=== PATIENT | male | born 1945 | race Caucasian/White ===

== ENCOUNTER 2022-09-05 06:00 | Day surgery (SDC) | payer MEDICARE, OTHER ==
[~2022-09-05] VITALS: Ht 170.2 cm; Wt 97.7 kg
[~2022-09-05 06:00] MED LIST: ALLOPURINOL100 MG PO; AZOR 5-40 MG T1 EACH PO; BYSTOLIC5 MG PO; FLOMAX0.4 MG PO; JARDIANCE25 MG PO; LIPITOR80 MG GT; VICTOZA 2-0.6 MG/0.1 SUB-Q
[2022-09-05 06:35] VITALS: BP 117/67
[2022-09-05] MEDS ORDERED: HYDROCODON-ACE1 EAC8 PO (06:38)
--- NOTE | 2022-09-05 10:36 | NUR ---
09/05/22 Diane6 Brenda Saravia 1030-PT ARRIVES TO PACU WITH LETHA DICKSON AND CUSTOMER SERVICE VOICE. PT AWAKE AND RESPONSIVE. DENIES PAIN/NAUSEA. PT BACK TO SLEEP. PT HAS SLEEP APNEA AND REQUIRES O2 SUPPORT AT THIS TIME. BLOOD SUGAR 124
[2022-09-05 11:03] VITALS: BP 103/53
--- NOTE | 2022-09-05 11:09 | NUR ---
CONRADO 1055 PATIENT BACK TO DAY SURGERY ROOM 7. REPORT RECIEVED FROM SHWETHA DELUNA. PATIENT IS DROWSY BUT ORIENTED. BREATHING EQUAL AND UNLABORED. OXYGEN SATURATIONS ABOVE 90% ON 2 LITERS VIA NASAL CANNULA. OXYGEN TITRATED DOWN TO ROOM AIR. OXYGEN MAINTAINING ABOVE 90% ON ROOM AIR. PATIENT STATES PAIN IS TOLERABLE AT 3/10. DENIES BEING NAUSEATED. WATER AND CRACKERS GIVEN. IVF FLUIDS RUNNING. NO DRAINAGE AT SURGICAL SITE. SCD'S ON. CALL LIGHT WITHIN REACH NO FUTHER NEEDS. NO QUESTIONS AT THIS TIME. AT BEDSIDE.
--- NOTE | 2022-09-05 11:27 | NUR ---
LE 1120 PATIENT GIVEN PRN PAIN MEDICINE. PATIENT ABLE TO DRINK AND EAT CRACKERS. DENIES PAIN AT THIS TIME. DENIES BEING NAUSEATED. CALL LIGHT WITHIN REACH NO FUTHER NEEDS. NO QUESTIONS AT THIS TIME.
[2022-09-05 11:55] VITALS: BP 116/73
--- NOTE | 2022-09-05 12:06 | NUR ---
LE 1130 PATIENT UP TO THE RESTROOM. VOIDED. PATIENT ABLE TO AMBULATE BACK TO BED. TOLERATED IT WELL. PATIENT STATES PAIN IS BETTER AFTER MEDICINE. LE 1155 PATIENT ALERT AND ORIENTED. BREATHING EQUAL AND UNLABORED. OXYGEN SATURATIONS ABOVE 90% ON ROOM AIR. PATIENT PAIN 3/10 PAIN AND DENIES BEING NAUSEATED. NO DRAINAGE AT THIS TIME. PATIENT HAS MET DISCHARGE CRITIERA. PATIENT GIVEN DISCHARGE INSTRUCTIONS AND UNDERTSTOOD. NO QUESTIONS AT THIS TIME. IV D/C'D WNL. PATIENT WHEELED OUT OF FACILITY NO FUTHER NEEDS. IN PRIVATE AUTO.
--- NOTE | 2022-09-05 18:31 | OR ---
[facility] [address] [facility] [place], [place] [address] Signed DATE OF OPERATION: 09/05/2022 SURGEON: Laura Gongora MD PREOPERATIVE DIAGNOSES: Prostate cancer with placement of brachytherapy seeds, now with need for postprocedure diagnostic cystourethroscopy. POSTOPERATIVE DIAGNOSES: Prostate cancer with placement of brachytherapy seeds, now with need for postprocedure diagnostic cystourethroscopy, breaking brachytherapy seeds, present within the membranous urethra. NAMES OF PROCEDURES: 1. Diagnostic cystourethroscopy. 2. Extraction of two brachytherapy seeds from the membranous urethra. ANESTHESIA: General. ESTIMATED BLOOD LOSS: None. COMPLICATIONS: None. SPECIMENS: Both two brachytherapy seeds and spacer were removed in toto without difficulty. DRAINS: None. INDICATIONS FOR PROCEDURE: Mr. Arreaga is a 77-year-old gentleman with prostate cancer who has just completed fluoroscopically guided placement of brachytherapy seeds by Dr. Uriel Anderson. Dr. Anderson has requested that I perform a diagnostic cystourethroscopy after the procedure to ensure no seeds have been misplaced within the urethra or bladder. OPERATIVE FINDINGS: 1. Diagnostic cystoscopy reveals no evidence of any suspicious masses, lesions, or Electronically Signed By: LAURA GONGORA MD 09/05/22 1831 PATIENT NAME: TROY ARREAGA OPERATIVE REPORT DATE OF : 49 REPORT #: [id number] PHYSICIAN: LAURA GONGORA MD PCP: NO PRIMARY CARE PHYSICIAN REPORT IS CONFIDENTIAL AND NOT TO BE RELEASED WITHOUT AUTHORIZATION [facility] [address] [place], [place] [address] Signed stones. There are no brachytherapy seeds present within the bladder. Bilateral ureteral orifices are in their normal anatomic location. 2. Ureteroscopy reveals the presence of a string of brachytherapy seeds within the membranous portion of the urethra. These two seeds were attached together with the spacer in between. Graspers were used to extract these seeds under direct visualization via a flexible cystoscope. The two seeds and spacer were removed in toto without difficulty. DESCRIPTION OF PROCEDURE: After informed consent was obtained, the patient was already in dorsal lithotomy position under general anesthesia. The patient's genitalia were prepped and draped in a standard sterile fashion. A flexible cystoscope was inserted through the patient's urethra and down and toward the prostatic urethra. At around the membranous urethra I did see an obvious seed protruding from this area into the lumen of the urethra. I used an alligator grasper to remove this seed and the seed that was attached to it via spacer from the patient's urethra. This was performed without difficulty. I then reinserted the cystoscope and re-evaluated the entire length of the urethra and then went into the bladder and I performed a thorough cystoscopy in that area. Please see above findings. I then withdrew the cystoscope completely and the procedure was terminated. The patient was straight cathed using a 16-Wolof catheter to empty the majority of his bladder as it was somewhat distended during the procedure. The catheter did not remain within the bladder at the end of the procedure. Overall, the patient tolerated the procedure well without any complication. He will now be taken to the postanesthesia care unit in stable condition. MD RENATE Nolen/MODL /[id number] Copies: ~ Electronically Signed By: LAURA GONGORA MD 09/05/22 1831 PATIENT NAME: TROY ARREAGA OPERATIVE REPORT DATE OF : 49 REPORT #: [id number] PHYSICIAN: LAURA GONGORA MD PCP: NO PRIMARY CARE PHYSICIAN REPORT IS CONFIDENTIAL AND NOT TO BE RELEASED WITHOUT AUTHORIZATION
--- NOTE | 2022-09-05 22:52 | EKG ---
[facility] [address] [facility] [place] [address] Signed Normal sinus rhythm Low voltage QRS Borderline ECG No previous ECGs available Confirmed by Jose A Moreira MD () on 09/05/2022 10:52:14 PM Electronically Signed By: JOSE A MOREIRA MD 09/05/22 2252 PATIENT NAME: TROY ARREAGA Electrocardiogram DATE OF : 49 PHYSICIAN: JOSE A MOREIRA MD REPORT #: [id number] REPORT IS CONFIDENTIAL AND NOT TO BE RELEASED WITHOUT AUTHORIZATION
--- NOTE | 2022-09-10 14:35 | OR ---
[facility] [address] [facility] [place], [place] [address] Signed DATE OF OPERATION: 09/05/2022 SURGEON: Josefina Anderson MD, PH.D. PREOPERATIVE DIAGNOSIS: Prostate adenocarcinoma. POSTOPERATIVE DIAGNOSIS: Prostate adenocarcinoma. PROCEDURE: Rectal ultrasound-guided implantation of radioactive iodine-125 seeds into the prostate gland. ANESTHESIA: General. ESTIMATED BLOOD LOSS: Minimal. COMPLICATIONS: None. ANTIBIOTICS: IV levofloxacin. INDICATIONS FOR PROCEDURE: Troy Arreaga is a 77-year-old gentleman who is diagnosed with a stage T2a, Laila grade 4 + 3 =7, PSA 4.55, prostate adenocarcinoma. His prostate cancer was classified as unfavorable intermediate risk. He was treated with neoadjuvant and concurrent hormone therapy along with radiation therapy to a dose of 45 Gy in 25 fractions to the pelvic lymph nodes, seminal vesicles, and prostate gland under the direction of Dr. Presley ending on July 15, 2022. He also had SpaceOAR, Hydrogel placed between the prostate gland and rectum prior to the start of his radiation. He has elected to undergo a radioactive seed implant boost. Prescription dose: 110 Gy with iodine-125 seeds with 0.276 millicurie activity. OPERATIVE DESCRIPTION: Following induction of adequate anesthesia, the patient was placed in the treatment Electronically Signed By: JOSEFINA ANDERSON 09/10/22 1435 PATIENT NAME: TROY ARREAGA OPERATIVE REPORT DATE OF : 49 REPORT #: [id number] PHYSICIAN: JOSEFINA ANDERSON PCP: NO PRIMARY CARE PHYSICIAN REPORT IS CONFIDENTIAL AND NOT TO BE RELEASED WITHOUT AUTHORIZATION [facility] [address] [place], [place] [address] Signed planning dorsal lithotomy position. The perineum was prepped with Betadine and a Madrigal catheter was inserted into the bladder without difficulty. The scrotum was elevated onto the abdominal wall and secured with Ioban. The fixation support system was fixed to the table and the ultrasound probe was affixed to the system. Transrectal ultrasound examination of the prostate gland was performed with a 6 megahertz probe, taking sagittal and transverse views to localize prostate gland, and to make sure the images conformed to the preoperative plan. Once the proper angulation and position were obtained, the apparatus was fixed in position. The template was then attached to the apparatus. Then, individual preloaded needles were inserted, one needle at a time through the template and perineal skin, and into the prostate gland according to the preoperative plan. Each individual needle was identified on the ultrasound images and inserted into position as close as possible to the pretreatment plan on axial images. Two anchor needles were placed initially to help stabilize the prostate gland. Then, starting anteriorly, one row of needles was placed first. Unfortunately, the patient began moving, and deeper anesthesia had to be induced. Due to the patient's movement, the needles were removed, the ultrasound probe was repositioned, and the procedure was restarted starting with the anchor needles. Ultimately, each row of needles was placed into the proper position within the prostate gland. The proper depth of each needle was then confirmed on sagittal images and also by measuring the distance from the template to the hub of each needle with a ruler. Then, needles were slowly withdrawn with the stylet in place, so that stranded seeds were placed in the prostate gland in the proper position. Then, subsequent rows of needles were placed, one at a time with placement of all the seeds from each row before proceeding to the next row. AP pelvic x-rays were taken periodically to confirm the proper position of the radioactive seeds. The treatment plan called for 74 seeds to be implanted, and a total of 74 seeds were placed into the prostate gland utilizing 24 needles. There was no bony interference encounter during the procedure. Following the insertion of the seeds, an AP pelvic x-ray was taken, which revealed seeds to be in the proper position within the pelvis. The patient then had a cystoscopy performed by Dr. Gold (see separate operative report). Unfortunately, a single seed was seen in the urethra, and this was extracted revealing a strand containing a total of two seeds. On further investigation, this strand likely corresponds with the seeds from needle 20. Therefore, a total of 72 seeds were left in the patient for a total activity of 19.87 millicuries. The patient tolerated the procedure well and was taken to the recovery room in good condition. The patient will have a voiding trial prior to discharge. Electronically Signed By: JOSEFINA ANDERSON 09/10/22 1435 PATIENT NAME: TROY ARREAGA OPERATIVE REPORT DATE OF : 49 REPORT #: [id number] PHYSICIAN: JOSEFINA ANDERSON PCP: NO PRIMARY CARE PHYSICIAN REPORT IS CONFIDENTIAL AND NOT TO BE RELEASED WITHOUT AUTHORIZATION [facility] [address] [place] [id number] Signed I will have my nurse reach out to the patient in the next several days to see how he is doing. We will obtain a CT scan of the pelvis in approximately one month for post implant asymmetry, and I will see him back for followup at that time. He was told to phone our office if he has any difficulties or problems. CONDITION: Stable. Josefina Anderson MD, PH.D. LEATHA/MODL /[id number] cc: MD Dawson Lara PA-C Ruff Aimee Rogers, MD Copies: ROGELIO PRESLEY MD,LAURA NEGRO MD ~ Electronically Signed By: JOSEFINA ANDERSON 09/10/22 1435 PATIENT NAME: TROY ARREAGA OPERATIVE REPORT DATE OF : 49 REPORT #: [id number] PHYSICIAN: JOSEFINA ANDERSON PCP: NO PRIMARY CARE PHYSICIAN REPORT IS CONFIDENTIAL AND NOT TO BE RELEASED WITHOUT AUTHORIZATION
== END 2022-09-05 11:55 | disposition home or self-care (01) ==
LOC: DS 06:00 → US 07:00 → DS 07:00 → EDSTATUS 07:00 → DS 11:55
PROVIDERS: Urology; ATTEND Radiology Radiation Oncology
PROC: 0TCD8ZZ Extirpation of Matter from Urethra, Via Natural or Artificial Opening Endoscopic (ICD-10-PCS; principal; 2022-09-05 08:00)
PROC: 0VH Male Reproductive System, Insertion (ICD-10-PCS; 2022-09-05 08:00)
DX: C61 Malignant neoplasm of prostate (principal)
CPT/HCPCS: 00860; 36415; 72170; 76873; 77470; 80048; 81001; 85025; 93005; 93010; C2638; J1956; J2001; J2405; J2704; J3010; J3475; J7121